=== PATIENT | female | born 1960 | race Caucasian/White ===

== ENCOUNTER 2024-05-12 13:55 | Outpatient (AMB) | payer BC, SELFPAY ==
--- NOTE | 2024-05-12 13:59 | MHC.PC.OV ---
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 She will sign a release for her medical records today. 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 Hyperlipidemia is treated with Zetia 10 mg daily. Patient thinks she is due for labs. She takes clonazepam only for flying. Patient reports having a negative Cologuard test in 2023. She is not interested in colonoscopy. Patient had a total hysterectomy in 2021, and she was told she does not have to follow up with Gynecology unless a problem arises. She is due for a bone density exam and mammogram in May this year. The orders will be sent to [facility] at her request. She has a history of low vitamin-D, and she does take a supplement which contains calcium and vitamin-D. Patient declines vaccinations today that she is due for, but she will call the office if she changes her mind. Her diastolic blood pressure is mildly elevated today. She does not have a history of hypertension, but she does have a blood pressure cuff at home. She will decrease sodium and caffeine, and she is starting to exercise more. She will monitor her blood pressure at home and call if blood pressure is above 130/80. ROS: Constitutional: No unexplained weight loss, fever, chills, fatigue or night sweats. Eyes: No vision changes, blurry vision, double vision, eye pain, eye redness, eye discharge. ENT: No hearing loss, sneezing, congestion, runny nose or sore throat. Respiratory: No shortness of breath, cough or sputum production. Cardiovascular: No chest pain, chest pressure or chest discomfort. No palpitations or pedal edema. Gastrointestinal: No anorexia, nausea, vomiting or diarrhea. No abdominal pain or blood in stool. Genitourinary: No dysuria, hematuria, urinary frequency. Neurologic: No headache, dizziness, syncope, unilateral weakness, ataxia, numbness or tingling in the extremities. Musculoskeletal: No muscle pain, back pain, joint pain or swelling. Hematologic/Lymphatics: No bleeding or bruising. No painful lymph nodes. Skin: No rash or itching. Endocrine: No cold or heat intolerance. No polyuria or polydipsia. Psychiatric: No depression or anxiety. No SI/HI. Physical exam: Constitutional: Alert, in no distress. Head: Normocephalic. Eyes: Pupils are equal, round and reactive to light. Extraocular muscles intact. Ear, Nose and Throat: Canals clear. TMs normal. Normal nasal mucosa. No nasal discharge. No oral lesions. Neck: Supple, Full range of motion. No lymphadenopathy. No palpable thyroid masses. Respiratory: Clear to auscultation. Cardiovascular: S1 S2 regular. No murmurs. No carotid bruits. Gastrointestinal: Abdomen soft, non-tender, non-distended. Normal bowel sounds. No palpable masses. Neurologic: No focal neurological deficits. Symmetric patellar reflexes. Moves all extremities spontaneously. Sensation intact bilaterally. Skin: No rashes or lesions. Musculoskeletal: No gross deformities. Normal range of motion. Extremities: Warm and well perfused. No clubbing, cyanosis or edema. 3+ peripheral pulses bilaterally. Psychiatric: Normal mood and affect [facility] Medical History (Updated 05/13/24 @ 09:33 by KARY Willis) Elevated blood pressure reading with diagnosis of hypertension Routine physical examination Low vitamin D level Fear of flying Pure hypercholesterolemia Screening for cardiovascular condition Surgical History (Updated 05/12/24 @ 14:05 by Michelle Alvarenga CMA) History of hysterectomy Family History (Updated 05/12/24 @ 14:07 by Michelle Alvarenga CMA) Maternal Grandfather Cancer Maternal Grandmother Breast cancer Social History (Updated 05/12/24 @ 14:04 by Michelle Alvarenga CMA) Household Members: Spouse Housing: House Alcohol intake: current Alcohol intake frequency: a few times a month Patient Tobacco Use Status: Never used Tobacco e-Cigarette/Vaping Use: Never Used service: No Current occupational status: employed 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 1. Little interest or pleasure in doing things: not at all 2. Feeling down, depressed, or hopeless: several days 3. Trouble falling or staying asleep, or sleeping too much: several days 4. Feeling tired or having little energy: not at all 5. Poor appetite or overeating: not at all 6. Feeling bad about yourself - or that you are a failure or have let yourself or your family down: several days 7. Trouble concentrating on things, such as reading the newspaper or watching television: not at all 8. Moving or speaking so slowly that other people could have noticed. Or the opposite - being so fidgety or restless that you have been moving around a lot more than usual: not at all 9. Thoughts that you would be better off or of hurting yourself in some way: not at all Total score: 3 Depression Screening Interpretation: Negative Depression Screening Done: Yes 84206 - PHQ-9 Billing: Yes Source: Developed by Drs. Bubba Nance, Sandy Dinero, Anuel Cortez and colleagues, with an educational estefani from [employer]. Thrive Questionnaire Date Thrive assessed: 05/12/24 I am a: Patient What is your living situation today?: I have a steady place to live Within the past 12 months, did the food you bought not last and you didn't have the money to get more?: Never true Within the past 12 months, did you worry whether your food would run out before you got money to buy more?: Never true Do you have trouble paying for medicines?: No Do you have trouble getting transportation to medical appointments?: No Do you have trouble paying your heating and electricity bill?: No Do you have trouble taking care of your child, family member or friend?: No Do you have trouble with day-to-day activities such as bathing, preparing meals, shopping, managing finances, etc.?: No Are you currently unemployed and looking for a job?: No Are you interested in more education?: Yes Please select the resources that you would like help with: None Currently or been in a relationship where the following occur: No concerns reported THRIVE Score: 0 AUDIT C Alcohol Use Questionnaire (AUDIT-C) 1. How often do you have a drink containing alcohol?: 2-4 times a month 2. How many drinks containing alcohol do you have on a typical day when you are drinking?: 1 or 2 3. How often do you have six or more drinks on one occasion?: Never Total Score: 2 NAHUN-7 AMB Questionnaire NAHUN-7 Date NAHUN - 7 assessed: 05/12/24 Feeling nervous, anxious, or on edge: 0 = Not at all Not being able to stop or control worryin = Several days Worrying too much about different things: 0 = Not at all Trouble relaxin = Not at all Being so restless that it is hard to sit still: 0 = Not at all Becoming easily annoyed or irritable: 0 = Not at all Feeling afraid as if something awful might happen: 0 = Not at all Total NAHUN-7 score (0-4 normal; 5-9 mild; 10-14 moderate; 15-21 severe): 1 Source: Developed by Drs. Bubba Nance, Sandy Dinero, Anuel Cortez and colleagues, with an educational estefani from [employer]. NAHUN-7 Assessment Billing NAHUN-7 Assessment Tool: NAHUN-7 Assessment 00064 Physical exam (Primary Care) Vital Signs: Last Vital Signs Pulse 94 05/12/24 14:01 BP 126/82 05/12/24 14:01 Pulse Ox 96 05/12/24 14:01 Oxygen Delivery Method Room Air 05/12/24 14:01 BMI result Body Mass Index 30.0 Tobacco/Smoking Status: Tobacco use Status Tobacco use date assessed 05/12/24 05/12/24 14:09 Patient Tobacco Use Status Never used Tobacco 05/12/24 14:09 e-Cigarette/Vaping Use Never Used 05/12/24 14:09 PHQ-9: PHQ-9 Score PHQ-9: Total score 3 05/12/24 14:44 Depression Screening Interpretation: Negative Thrive Assessment: Date of Thrive Assessment Date Thrive assessed 05/12/24 05/12/24 14:09 Currently or been in a relationship where the following occur: No concerns reported Coding Level of Care Code New Pt Prev Care 40-64y(94610) Diagnoses Low vitamin D level R79.89 Pure hypercholesterolemia E78.00 Fear of flying F40.243 Routine physical examination Z00.00 Additional Codes NAHUN-7 Assessment Billing - NAHUN-7 Assessment Tool: NAHUN-7 Assessment 95067 ([id number]) PHQ-9 - 53055 - PHQ-9 Billing: Yes ([id number]) Assessment & Plan Assessment & Plan (1) Low vitamin D level: Code(s): R79.89 - Other specified abnormal findings of blood chemistry Category: Medical Plan: Continue supplement and check vitamin-D level. (2) Pure hypercholesterolemia: Code(s): E78.00 - Pure hypercholesterolemia, unspecified Category: Medical Plan: Continue Zetia and check lipid profile. Recommended Mediterranean diet and exercise. (3) Fear of flying: Code(s): F40.243 - Fear of flying Category: Medical Plan: She takes clonazepam as needed for flights. (4) Routine physical examination: Code(s): Z00.00 - Encounter for general adult medical examination without abnormal findings Category: Medical Plan: Patient is seen today for a routine physical. As part of this visit we reviewed the following issues, which are considered and essential part of preventative health in this age group: - Breast Cancer screening - Screening for colon cancer - Blood pressure screening - Cholesterol screening - Osteoporosis prevention including calcium/vitamin D intake, weight bearing exercise & smoking cessation - Nutritional and exercise counseling - Counseling of injury prevention including fire prevention, smoke alarms and seat belt usage - Screening for depression - Education about skin cancer - Recommendations about immunizations - Recommendation of an eye exam - Screening for substance abuse Plan Follow up in 1 year for annual physical exam. Orders: Orders TSH reflex Free T4 05/12/24 E78.00 - Pure hypercholesterolemia, unspecified, F40.243 - Fear of flying, Z13.6 - Encounter for screening for cardiovascular disorders Comprehensive Met. Panel 05/12/24 E78.00 - Pure hypercholesterolemia, unspecified, F40.243 - Fear of flying, Z13.6 - Encounter for screening for cardiovascular disorders Lipid Panel 05/12/24 E78.00 - Pure hypercholesterolemia, unspecified, E78.5 - Hyperlipidemia, unspecified, F40.243 - Fear of flying, Z13.6 - Encounter for screening for cardiovascular disorders XR DEXA axial skeleton 05/12/24 N95.1 - Menopausal and female climacteric states MM screening mammo BI 05/12/24 Z12.31 - Encounter for screening mammogram for malignant neoplasm of breast Vitamin D 25-OH (D2 and D3) 05/12/24 E78.00 - Pure hypercholesterolemia, unspecified, F40.243 - Fear of flying, M85.80 - Other specified disorders of bone density and structure, unspecified site, Z13.6 - Encounter for screening for cardiovascular disorders Complete Blood Count no Diff 05/12/24 E78.00 - Pure hypercholesterolemia, unspecified, F40.243 - Fear of flying, Z13.6 - Encounter for screening for cardiovascular disorders Medications: New ezetimibe (Zetia) 10 mg PO DAILY 90 tabs 3RF
[2024-05-12 14:01] VITALS: BP 126/82; PULSE 94; O2SAT 96
== END 2024-05-12 14:45 | disposition home or self-care (01) ==
PROVIDERS: PCP Physician Assistant Medical; Visit Provider Physician Assistant Medical
DX: R79.89 Other specified abnormal findings of blood chemistry (principal); E78.00 Pure hypercholesterolemia, unspecified; F40.243 Fear of flying; Z00.00 Encounter for general adult medical examination without abnormal findings

== ENCOUNTER → 2024-05-12 13:55 | Outpatient (BNVA) | payer BC, SELFPAY | PROVIDERS: PCP Physician Assistant Medical; Visit Provider Physician Assistant Medical | DX: Z00.00 Encounter for general adult medical examination without abnormal findings (principal); E55.9 Vitamin D deficiency, unspecified; E78.00 Pure hypercholesterolemia, unspecified; F40.243 Fear of flying; Z79.899 Other long term (current) drug therapy | CPT/HCPCS: 96127 ==

== ENCOUNTER 2025-02-16 15:09 | Outpatient (AMB) | payer BC, SELFPAY ==
--- NOTE | 2025-02-16 15:27 | MHC.PC.OV ---
Vital Signs 02/16/25 15:33 Height 5 ft 1 in Weight 155 lb 4 oz BMI 29.3 BP 110/62 Blood Pressure Location Rt brachial Position Sitting Pulse 88 Pulse Source Pulse Oximeter Temp 98 F Temp Source Temporal Artery Scan Pulse Oximetry (%) 97 Oxygen Delivery Method Room Air Intake Visit Reasons: sore on nose Intake Note: Rosalie presents in the office today for a sore on her nose. 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 Post menopausal: No Patient : No Allergies No Known Allergies Allergy (Verified 02/16/25 15:31) Tobacco use date assessed: 02/16/25 Dental Screening Dental Screen Date: 02/16/25 Did you have a dental visit in the last 12 months?: Yes Did you have a dental problem in the last 6 months where you did not have access to dental care?: No Was dental information given to patient?: Patient has dentist HPI HPI Comments History of Present Illness Details This is a 64-year-old female with a past medical history of low vitamin-D, hyperlipidemia and a fear of flying presenting for a skin lesion evaluation. Six months ago she noticed a small spot on the left side of her nose. It does not hurt or itch. Sometimes it formed a scab or she will scratch it and the skin will come off, and then it heals, but it never goes away. She covers her face when she is outside and uses sun protection. There is no family or personal history of skin cancer. She does not feel like the lesion has changed significantly or gotten larger since she noticed it. Hyperlipidemia is treated with Zetia 10 mg daily. Labs were placed in April, but she did not have them done yet. She will return for them fasting. She takes clonazepam only for flying. ROS: Constitutional: No unexplained weight loss, fever, chills, fatigue or night sweats. Skin: See HPI Physical exam: Constitutional: Alert, in no distress. Neck: Supple, Full range of motion. No lymphadenopathy. Respiratory: Clear to auscultation. Cardiovascular: S1 S2 regular. No murmur Skin: 3 mm, raised, pearly, flesh colored lesion on the top of the left side of the nose. The borders are well demarcated. [facility] Medical History (Updated 02/16/25 @ 15:53 by KARY Willis) Neoplasm of skin of nose Osteopenia Elevated blood pressure reading with diagnosis of hypertension Routine physical examination Low vitamin D level Fear of flying Pure hypercholesterolemia Screening for cardiovascular condition Surgical History (Updated 05/12/24 @ 14:05 by Michelle Alvarenga [facility]) History of hysterectomy Family History (Updated 02/16/25 @ 15:33 by Pattie Carson [facility]) Maternal Grandfather Cancer Maternal Grandmother Breast cancer Father Schizoaffective disorder Substance abuse Alcoholism Social History (Updated 02/16/25 @ 15:33 by Pattie Carson [facility]) Household Members: Spouse Housing: House Alcohol intake: current Alcohol intake frequency: a few times a month Patient Tobacco Use Status: Never used Tobacco e-Cigarette/Vaping Use: Never Used Second Hand Smoke Exposure: No Use of substances other than those prescribed or required for medical reasons: No Patient : No service: No Current occupational status: employed 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 Cognitive needs: No Hearing needs: No Vision needs: Yes Questionnaire Thrive Questionnaire Date Thrive assessed: 05/12/24 I am a: Patient What is your living situation today?: I have a steady place to live Within the past 12 months, did the food you bought not last and you didn't have the money to get more?: Never true Within the past 12 months, did you worry whether your food would run out before you got money to buy more?: Never true Do you have trouble paying for medicines?: No Do you have trouble getting transportation to medical appointments?: No Do you have trouble paying your heating and electricity bill?: No Do you have trouble taking care of your child, family member or friend?: No Do you have trouble with day-to-day activities such as bathing, preparing meals, shopping, managing finances, etc.?: No Are you currently unemployed and looking for a job?: No Are you interested in more education?: Yes Please select the resources that you would like help with: None Currently or been in a relationship where the following occur: No concerns reported THRIVE Score: 0 NAHUN-7 AMB Questionnaire NAHUN-7 Date NAHUN - 7 assessed: 05/12/24 Source: Developed by Drs. Bubba Nance, Sandy Dinero, Anuel Cortez and colleagues, with an educational estefani from [employer]. Physical exam (Primary Care) Vital Signs: Last Vital Signs Temp 98 F 02/16/25 15:33 Pulse 88 02/16/25 15:33 BP 110/62 02/16/25 15:33 Pulse Ox 97 02/16/25 15:33 Oxygen Delivery Method Room Air 02/16/25 15:33 BMI result Body Mass Index 29.3 Tobacco/Smoking Status: Tobacco use Status Tobacco use date assessed 02/16/25 02/16/25 15:37 Patient Tobacco Use Status Never used Tobacco 02/16/25 15:33 e-Cigarette/Vaping Use Never Used 02/16/25 15:33 Thrive Assessment: Date of Thrive Assessment Date Thrive assessed 05/12/24 02/16/25 15:29 Currently or been in a relationship where the following occur: No concerns reported Coding Level of Care Code Est Pt Level 4 (61117) Complex visit Add On G2211 Diagnoses Neoplasm of skin of nose D49.2 Pure hypercholesterolemia E78.00 Fear of flying F40.243 Assessment & Plan Assessment & Plan (1) Neoplasm of skin of nose: Code(s): D49.2 - Neoplasm of unspecified behavior of bone, soft tissue, and skin Category: Medical Plan: Appearance of this nonhealing lesion is concerning for basal cell carcinoma. I explained that if it is a basal cell they are extremely slow growing. I do advise her to see a clinical product manager. She is agreeable. Referral placed to [facility]. (2) Pure hypercholesterolemia: Code(s): E78.00 - Pure hypercholesterolemia, unspecified Category: Medical Plan: She will have lab work drawn. Continue Zetia. (3) Fear of flying: Code(s): F40.243 - Fear of flying Category: Medical Plan: She uses clonazepam as needed. Plan She has a physical scheduled in May. Orders: Referrals Dermatology Referral D49.2 - Neoplasm of unspecified behavior of bone, soft tissue, and skin
[2025-02-16 15:33] VITALS: BP 110/62; PULSE 88; TEMP 36.6; O2SAT 97; BMI 29.3
== END 2025-02-16 16:07 | disposition home or self-care (01) ==
LOC: HO.HMCFM 15:10
PROVIDERS: PCP Physician Assistant Medical; Visit Provider Physician Assistant Medical
DX: D49.2 Neoplasm of unspecified behavior of bone, soft tissue, and skin (principal); E78.00 Pure hypercholesterolemia, unspecified; F40.243 Fear of flying